=== PATIENT | female | born 1980 | race Caucasian/White ===

== ENCOUNTER 2016-08-23 12:26 | Emergency (ER) | payer MEDICAID, OTHER ==
[~2016-08-23] VITALS: Ht 157.5 cm; Wt 92.5 kg
[~2016-08-23 12:26] MED LIST: /TIZA4TA PO; ACET500T37 PO; ACET650T PO; AMBI10TA PO; AMBI12.52 PO; ARMO120T PO; ARMO90TA PO; AUGM875T27 PO; BACL10TA2 PO; BUTR10DI2 TD; CIPR500T89 PO; CLAR10CA3 PO; CLON1TAB PO; CYCL10TA PO; DEPA1TAB3 PO; FIORCAP3 PO; HYDRPOW48 PO; KEPP500T6 PO; KLON0.5T PO; LEVO125T3 PO; LEVO150T7 PO; LEXA1TAB PO; LEXA1TAB2 PO; LIDODERM TOP; LISI10TA4 PO; LOMO2.5T PO; LORA10TA2 PO; LORA24TA PO; LYRI75CA PO; MIREIUD IU; MORP15IN4 IJ; MORP15TA2 PO; MORP15TA39 PO; MORP15TASA PO; NICO21DI5 TD; PRIL20CA9 PO; PRIN10TA PO; PROP80TA PO; ROBA750T4 PO; SING10TA32 PO; SUMA50TA2 PO; TPS Cream TOP; TYLE325T5 PO; VICODIN PO; ZOLP-187 PO; [UNRECOGNIZED DRUG - CODE] PO; [UNRECOGNIZED DRUG - CODE] PO; buspar PO
[2016-08-23] MEDS ORDERED: DIPH2.5T14 (13:06)
[2016-08-23] MEDS ORDERED: CLIN1LOT (13:06)
[2016-08-23] MEDS ORDERED: BUTA1CAP5 (13:06)
[2016-08-23] MEDS ORDERED: HYDR-4274 (13:06)
[2016-08-23] MEDS ORDERED: CLON1TAB (13:06)
[2016-08-23] MEDS ORDERED: DEPA500T2 PO (13:06)
[2016-08-23] MEDS ORDERED: ZOLP12.515 (13:06)
[2016-08-23] MEDS ORDERED: CLEO300C2 PO (14:51)
[2016-08-23] MEDS ORDERED: NORC1TAB4 PO (15:07)
[2016-08-23] MEDS ORDERED: DIFL150T PO (15:19)
[2016-08-23 15:20] VITALS: BP 115/75
== END 2016-08-23 15:24 | disposition home or self-care (01) ==
LOC: M ED 14:02
DX: S61.411A Laceration without foreign body of right hand, initial encounter (principal); L03.113 Cellulitis of right upper limb; W26.0XXA Contact with knife, initial encounter; Y92.099 Unspecified place in other non-institutional residence as the place of occurrence of the external cause; Y93.89 Activity, other specified; Y99.9 Unspecified external cause status

== ENCOUNTER → 2016-09-22 | Outpatient (CLI) | payer MEDICAID ==
[~2016-09-22] MED LIST changes: +BUTA1CAP5; +CLEO300C2 PO; +CLIN1LOT; +CLON1TAB; +DEPA500T2 PO; +DIFL150T PO; +DIPH2.5T14; +HYDR-4274; +NORC1TAB4 PO; +ZOLP12.515
== END ==
LOC: M OUTALCOH 07:41
PROVIDERS: ATTEND Psychiatry & Neurology Psychiatry
DX: Z13.9 Encounter for screening, unspecified (principal); F13.20 Sedative, hypnotic or anxiolytic dependence, uncomplicated; F11.20 Opioid dependence, uncomplicated

== ENCOUNTER 2016-10-06 10:00 | Outpatient (RCR) | payer MEDICAID | END 2016-10-14 | LOC: M OUTALCOH 10:00 | PROVIDERS: ATTEND Psychiatry & Neurology Psychiatry | DX: F13.20 Sedative, hypnotic or anxiolytic dependence, uncomplicated (principal); F11.20 Opioid dependence, uncomplicated; F19.20 Other psychoactive substance dependence, uncomplicated ==

== ENCOUNTER 2016-10-21 10:12 | Emergency (ER) | payer MEDICAID ==
[~2016-10-21] VITALS: Ht 157.5 cm; Wt 68.5 kg
[2016-10-21] MEDS ORDERED: ZYRTTAB2 PO (10:26)
[2016-10-21] MEDS ORDERED: PROZ10CA7 PO (10:26)
[2016-10-21] MEDS ORDERED: FLUT1SPR2 (10:26)
[2016-10-21] MEDS ORDERED: LEVO125T3 PO (10:26)
[2016-10-21] MEDS ORDERED: DOXY-278 PO (10:26)
[2016-10-21] MEDS ORDERED: PRED20TA PO (12:00)
[2016-10-21] MEDS ORDERED: [UNRECOGNIZED DRUG - CODE] PO (12:00)
[2016-10-21 12:09] VITALS: BP 170/90
== END 2016-10-21 12:21 | disposition home or self-care (01) ==
LOC: M ED 11:07
DX: R60.9 Edema, unspecified (principal); I10 Essential (primary) hypertension; G89.29 Other chronic pain; M54.2 Cervicalgia; F41.9 Anxiety disorder, unspecified; F17.200 Nicotine dependence, unspecified, uncomplicated; Z87.820 Personal history of traumatic brain injury; Z79.899 Other long term (current) drug therapy; Z88.5 Allergy status to narcotic agent; Z88.6 Allergy status to analgesic agent

== ENCOUNTER 2016-11-10 10:00 | Outpatient (RCR) | payer MEDICAID ==
[~2016-11-10 10:00] MED LIST changes: +ACET-683 PO; -ACET500T37 PO; -AUGM875T27 PO; +AUGM875T28 PO; -BUTA1CAP5; +BUTR10DI TD; -BUTR10DI2 TD; +CIPR-249 PO; -CIPR500T89 PO; +DOXY-278 PO; +FIORINAL; +FLUT1SPR2; -HYDR-4274; +HYDR50TA70; +KEPP1TAB PO; -KEPP500T6 PO; +LEVO125T4 PO; -MORP15TA39 PO; +MORP1TAB19 PO; +PRED20TA PO; +PROZ10CA7 PO; +SONA1CAP PO; +ZYRTTAB8 PO; +[UNRECOGNIZED DRUG - CODE] PO; -[UNRECOGNIZED DRUG - CODE] PO
== END 2016-11-13 ==
LOC: M OUTALCOH 10:00
PROVIDERS: ATTEND Psychiatry & Neurology Psychiatry
DX: F13.20 Sedative, hypnotic or anxiolytic dependence, uncomplicated (principal); F11.20 Opioid dependence, uncomplicated; F19.20 Other psychoactive substance dependence, uncomplicated

== ENCOUNTER 2016-11-15 12:47 | Emergency (ER) | payer MEDICAID, OTHER ==
[~2016-11-15] VITALS: Ht 160 cm; Wt 89.2 kg
--- NOTE | 2016-11-15 14:13 | REP ---
Clinical: Trauma. Technique: AP, lateral, bilateral oblique views left foot. Findings: The osseous structures and joint spaces are intact and normal. There is no evidence for acute fracture or dislocation. Surrounding soft tissues are unremarkable. No subcutaneous emphysema or radiodense foreign body. Impression: No acute fracture or dislocation. Signed by Albert Monique MD 11/15/2016 02:03 P
--- NOTE | 2016-11-15 14:13 | REP ---
Clinical: Trauma. Technique: AP, lateral, bilateral oblique views left wrist. Findings: The carpal bones, surrounding osseous structures, soft tissues, and joint spaces are normal. There is no evidence for acute fracture or dislocation. No subcutaneous emphysema. Impression: No acute fracture or dislocation Signed by Albert Monique MD 11/15/2016 02:05 P
[2016-11-15] MEDS ORDERED: LORazepam 2 MG TAB PO STA (15:25)
[2016-11-15 16:36] VITALS: BP 129/85
== END 2016-11-15 16:32 | disposition home or self-care (01) ==
LOC: M ED 14:03
DX: S80.01XA Contusion of right knee, initial encounter (principal); S80.02XA Contusion of left knee, initial encounter; F17.210 Nicotine dependence, cigarettes, uncomplicated; F43.12 Post-traumatic stress disorder, chronic; M54.2 Cervicalgia; G89.29 Other chronic pain; Z87.820 Personal history of traumatic brain injury; Y04.0XXA Assault by unarmed brawl or fight, initial encounter; Y92.248 Other public administrative building as the place of occurrence of the external cause; Y93.89 Activity, other specified; Y99.9 Unspecified external cause status

== ENCOUNTER 2016-12-10 08:00 | Outpatient (RCR) | payer MEDICAID ==
[2016-12-11] MEDS ORDERED: CLON1TAB PO (19:15)
[2016-12-11] MEDS ORDERED: BUTACAP78 PO (19:15)
[2016-12-11] MEDS ORDERED: FLUO10TA30 PO (19:17)
[2016-12-11] MEDS ORDERED: DOXY100T PO (19:17)
[2016-12-11] MEDS ORDERED: DIVA500T3 PO (19:17)
[2016-12-11] MEDS ORDERED: FLUO20CA19 PO (19:17)
[2016-12-11] MEDS ORDERED: LOMO2.5T PO (19:17)
[2016-12-11] MEDS ORDERED: FLON1SPR (19:21)
[2016-12-11] MEDS ORDERED: AMBI10TA PO (19:21)
[2016-12-11] MEDS ORDERED: ALPR0.5T3 PO (19:21)
[2016-12-11] MEDS ORDERED: PROP80TA PO (19:21)
[2016-12-11] MEDS ORDERED: ZYRTTAB8 PO (19:21)
[2016-12-11] MEDS ORDERED: LEVO150T42 PO (19:21)
[2016-12-11] MEDS ORDERED: LISI10TA4 PO (19:21)
[2016-12-11] MEDS ORDERED: SUMA50TA2 PO (19:21)
[2016-12-11] MEDS ORDERED: PATIENT COMMENT (19:22)
[2016-12-11] MEDS ORDERED: AMIT10TA PO (19:22)
== END 2016-12-14 ==
LOC: M OUTALCOH 08:00
PROVIDERS: ATTEND Psychiatry & Neurology Psychiatry
DX: F13.20 Sedative, hypnotic or anxiolytic dependence, uncomplicated (principal); F11.20 Opioid dependence, uncomplicated; F19.20 Other psychoactive substance dependence, uncomplicated

== ENCOUNTER 2016-12-11 15:10 | Observation (INO) | payer MEDICAID, OTHER ==
[~2016-12-11] VITALS: Ht 160 cm; Wt 93.8 kg
[2016-12-11] MEDS ORDERED: CHARCOAL ACTIVATED LIQUID 25 GM/120 ML BTL PO ONE (15:45)
[2016-12-11] MEDS ORDERED: NALOXONE INJ 2 MG/2 ML SYRINGE (J2310) IV ONE (15:45)
[2016-12-11 15:57] LABS: BASO % 0.8 % (0.0-1.0); EOS # 0.2 K/mm3 (0.0-0.50); EOS % 3.5 % (0.0-3.0); LARGE UNSTAINED CELL # 0.1 K/mm3 (0.0-0.4); LARGE UNSTAINED CELL % 1.6 % (0.0-4.0); LYMPH # 2.9 K/mm3 (1.5-4.5); LYMPH % 41.1 % (24.0-44.0); MEAN CORPUSCULAR HEMOGLOBIN 32.6 pg (27.0-33.0); MEAN CORPUSCULAR HGB CONC 34.2 g/dl (32.0-36.5); MEAN CORPUSCULAR VOLUME 95.3 fl (80.0-96.0); MONO # 0.4 K/mm3 (0.0-0.8); MONO % 5.8 % (0.0-5.0); NEUTROPHILS # 3.2 K/mm3 (1.8-7.7); NEUTROPHILS % 47.3 % (36.0-66.0); PLATELET COUNT, AUTOMATED 213 k/mm3 (150-450); WHITE BLOOD COUNT 6.7 K/mm3 (4.0-10.0)
[2016-12-11] MEDS: NS 1,000 ML IV SCH ×2 (15:57→21:19)
[2016-12-11 16:12] LABS: CONTROL LINE HCG INT CTR LINE PRESENT
[2016-12-11 16:29] LABS: ALBUMIN 3.7 GM/DL (3.2-5.2); ALBUMIN/GLOBULIN RATIO 1.28 (1.00-1.93); ALKALINE PHOSPHATASE 63 U/L (45-117); ALT/SGPT 17 U/L (12-78); ANION GAP 9 MEQ/L (8-16); AST/SGOT 21 U/L (15-37); BILIRUBIN,DIRECT 0.1 MG/DL (0.0-0.2); BILIRUBIN,TOTAL 0.5 MG/DL (0.2-1.0); BLOOD UREA NITROGEN 8 MG/DL (7-18); CALCIUM LEVEL 8.2 MG/DL (8.5-10.1); CARBON DIOXIDE LEVEL 25 MEQ/L (21-32); CHLORIDE LEVEL 106 MEQ/L (98-107); CREATININE FOR GFR 0.94 MG/DL (0.55-1.02); GLOMERULAR FILTRATION RATE > 60.0 (>60); GLUCOSE, FASTING 87 MG/DL (70-105); POTASSIUM SERUM 4.1 MEQ/L (3.5-5.1); SODIUM LEVEL 140 MEQ/L (136-145); TOTAL PROTEIN 6.6 GM/DL (6.4-8.2)
--- NOTE | 2016-12-11 17:04 | REP ---
Maxillofacial CT: The patient is uncooperative was of remain quiescent during the scanning process and actually sat up in the scanning gantry during the procedure. Repeat images are attempted. There is no nasal bone fracture. No orbit fracture is identified. No zygoma fracture. The paranasal sinuses and mastoid air cells are unremarkable. There is congenital mild nasal the zone septal deviation to the right anteriorly . The skull base and sella are unremarkable. No fracture of the maxilla identified. Impression: No facial bone fractures are identified. Signed by Steve Contreras MD 12/11/2016 04:55 P
--- NOTE | 2016-12-11 17:10 | REP ---
CHEST, PORTABLE, SINGLE VIEW: There is no evidence of acute infiltrate. No pleural effusion is seen. The heart is normal in size. The mediastinal silhouette is unremarkable. The visualized osseous structures are intact. IMPRESSION: No acute pulmonary disease. Signed by Steve Jamison MD 12/22/2016 08:37 A
[2016-12-11 17:12] LABS: METHADONE URINE NEGATIVE (NEGATIVE)
--- NOTE | 2016-12-11 17:35 | REP ---
CT CERVICAL SPINE: CT cervical spine was performed in the axial plane, with sagittal and coronal reconstruction images. There is no compression fracture. There is no malalignment. There is no prevertebral soft tissue swelling. There is mild posterior spurring at C5 and C6 with mild disc space narrowing at that level. No definite hematoma is seen in the spinal canal. IMPRESSION: No evidence of acute fracture or dislocation. Signed by Steve Jamison MD 12/22/2016 08:37 A
--- NOTE | 2016-12-11 17:36 | REP ---
CT BRAIN WITHOUT CONTRAST: 12/11/2016: Comparison: 02/24/2016. Clinical history: Drug overdose. Head trauma. Coup-contrecoup injury. Findings: Soft-tissue and bone window settings are reviewed for each slice level. Ventricles are midline, symmetric and without dilatation or displacement. Basal ganglia are symmetric and normal. The curtis-white junction differentiation is well maintained. The cortical stripe preserved. I see no vascular territory infarct, hemorrhage, mass, mass effect or edema. No extra-axial fluid collections are noted. The brainstem was intact. Cerebellum is normal. The basal cisterns are intact. Visualized mastoids and sinuses are clear. The calvarium and skull base are without fracture or focal lesion. There is a central frontal scalp hematoma with small amount of swelling but no subjacent fracture and no coup-contrecoup injury. Impression: 1. A small frontal scalp hematoma without subjacent fracture is noted. Visualized calvarium, skull base, mastoids and sinuses are clear. 2. No intracranial hemorrhage or other acute abnormality within the brain. No extra-axial fluid collection. Abdomen at time of signature: I wish it to be known that this study was just presented for my signature. Signed by Alessandro Michele MD 01/13/2017 05:00 P
[2016-12-11] MEDS ORDERED: NS 1,000 ML IV SCH (18:51)
[2016-12-11] MEDS ORDERED: ONDANSETRON 4MG/2ML VIAL (J2405) IV PRN (19:00)
[2016-12-11] MEDS ORDERED: CLON1TAB PO (19:15)
[2016-12-11] MEDS ORDERED: BUTACAP78 PO (19:15)
[2016-12-11] MEDS ORDERED: LOMO2.5T PO (19:17)
[2016-12-11] MEDS ORDERED: FLUO20CA19 PO (19:17)
[2016-12-11] MEDS ORDERED: DIVA500T3 PO (19:17)
[2016-12-11] MEDS ORDERED: FLUO10TA30 PO (19:17)
[2016-12-11] MEDS ORDERED: DOXY100T PO (19:17)
[2016-12-11] MEDS ORDERED: PROP80TA PO (19:21)
[2016-12-11] MEDS ORDERED: LEVO150T42 PO (19:21)
[2016-12-11] MEDS ORDERED: FLON1SPR (19:21)
[2016-12-11] MEDS ORDERED: AMBI10TA PO (19:21)
[2016-12-11] MEDS ORDERED: SUMA50TA2 PO (19:21)
[2016-12-11] MEDS ORDERED: ZYRTTAB8 PO (19:21)
[2016-12-11] MEDS ORDERED: ALPR0.5T3 PO (19:21)
[2016-12-11] MEDS ORDERED: LISI10TA4 PO (19:21)
[2016-12-11] MEDS ORDERED: PATIENT COMMENT (19:22)
[2016-12-11] MEDS ORDERED: AMIT10TA PO (19:22)
--- NOTE | 2016-12-11 19:38 | HPEPDOC ---
Medical History and Physical Date of Admission Dec 11, 2016 at 19:06 History and Physical PRIMARY CARE PROVIDER: PCP unknown at this time ATTENDING: Ronnie Peterson MD CHIEF COMPLAINT: Status post fall, altered mental status HISTORY OF PRESENT ILLNESS: This is a 36-year-old female past medical history of seizure disorder, TBI 2011 , anxiety, hypothyroidism status post thyroidectomy for Graves' disease, hypertension, chronic neck and back pain who presents after her daughter had called 911 upon seeing her staring at the phone. Per ED physician, the patient had been getting Fioricet, clonazepam, amitriptyline, and likely had some undocumented medications, that she likely overdosed on. The patient has a history of drug overdose, and states that she currently goes to group meetings on Tuesdays she is an addict. ED physician stated that 2 physicians in [facility] are prescribing her these medications. The patient states that she was walking to the bathroom and she fell onto but the bathtub striking her for head, and broke 3 front teeth. She is slow to respond to questions and history is very limited from her. States she has a 10-year-old daughter at home alone; nursing mold yard supervisor has been notified. PAST MEDICAL HISTORY: As per HPI PAST SURGICAL HISTORY: Recent thyroidectomy 2015 SOCIAL HISTORY: States she smokes 1 pack per day times years. Denies alcohol or illicit drug use. FAMILY HISTORY: Noncontributory ALLERGIES: Please see below. REVIEW OF SYSTEMS: HEENT: Denies sore throat/headache CARDIOVASCULAR: Denies chest pain/palpitations RESPIRATORY: Denies shortness of breath/cough GASTROINTESTINAL: denies nausea/vomiting GENITOURINARY: Denies dysuria/urinary urgency. MUSCULOSKELETAL: Denies myalgias/arthralgias NEUROLOGICAL: Denies any focal weakness HOME MEDICATIONS: Please see below. PHYSICAL EXAMINATION: Vitals: (see below) General: No acute distress, laying comfortably in bed. HEENT: Moist mucous membranes. Proptosis b/l. Face with frontal contusion. Nose with abrasion. 3 front teeth missing Neck: No JVD or lymphadenopathy Cardiac: RRR, No murmurs Pulm: Clear to auscultation b/l. No wheezing, rhonchi Abd: NT/ND + BS Ext: No edema or cyanosis Neuro: Strength 5/5 BUE and BLE. CN 2-12 intact. B/l Nystagmus noted. Pupils 4mm equal and reactive to light. F to N intact Negative [place]. Alert and oriented to person, place, year. Slow to respond to questions. LABORATORY DATA: See below. IMAGING: Maxillofacial CT 12/11/16 Impression:No facial bone fractures are identified. CT Head Impression: 12/11/16 1. A small frontal scalp hematoma without subjacent fracture is noted. Visualized calvarium, skull base, mastoids and sinuses are clear. 2. No intracranial hemorrhage or other acute abnormality within the brain. No extra-axial fluid collection. CXR 12/11/16 IMPRESSION: No acute pulmonary disease. CT C- spine 12/11/16 IMPRESSION: No evidence of acute fracture or dislocation. MICROBIOLOGY: Please see below. ASSESSMENT/PLAN: 1. Drug overdose- patient has a history of multiple overdoses. States she is an addict who attends group meetings on Tuesdays. We'll hold her home medications at this point. Monitor telemetry. She does have nystagmus on exam. Slow to respond to questions; otherwise no significant focal deficits on exam. Patient is not medically stable at this point. We'll need to monitor on telemetry. EKG with normal sinus rhythm no acute ST changes normal QTC. Poison control was notified by the ED staff with recommendations for checking ammonia level, and monitoring patient. Once medically stable, will need psychiatry consulted. 2. Frontal hematoma/3 broken teeth/ nasal abrasion/laceration- no broken bones per CAT scans. We'll continue to monitor. 3. Hypothyroidism- status post thyroidectomy for Graves' disease. Patient states she recently picked up her thyroid medications 2 days ago and has not started them yet. We will start Synthroid. 4. ? History of Seizure disorder- Depakote level low. ? Whether patient was taking it. All need to reassess mental status in the a.m. before restarting. 5. History of hypertension- on lisinopril 6. History of anxiety 7. History of chronic neck and back pain DVT prophylaxis- SCDs Patient will be followed by Dr. Boo starting 12/12/16 at 7 AM. Vital Signs Vital Signs Date Time Temp Pulse Resp B/P (MAP) Pulse Ox O2 Delivery O2 Flow Rate FiO2 12/11/16 18:04 144/93 (110) 12/11/16 18:01 97.3 71 18 100 12/11/16 15:29 Room Air Laboratory Data Labs 24H Laboratory Tests 2 12/11/16 15:45: White Blood Count 6.7, Red Blood Count 4.19, Hemoglobin 13.7, Hematocrit 39.9, Mean Corpuscular Volume 95.3, Mean Corpuscular Hemoglobin 32.6, Mean Corpuscular Hemoglobin Concent 34.2, Red Cell Distribution Width 14.0, Platelet Count 213, Neutrophils (%) (Auto) 47.3, Lymphocytes (%) (Auto) 41.1, Monocytes ( %) (Auto) 5.8H, Eosinophils (%) (Auto) 3.5H, Basophils (%) (Auto) 0.8, Neutrophils # (Auto) 3.2, Lymphocytes # (Auto) 2.9, Monocytes # (Auto) 0.4, Eosinophils # (Auto) 0.2, Basophils # (Auto) 0.0, Large Unclassified Cells % 1.6 , Large Unclassified Cells # 0.1, Anion Gap 9, Glomerular Filtration Rate > 60.0 , Calcium Level 8.2L, Aspartate Amino Transf (AST/SGOT) 21, Alanine Aminotransferase (ALT/SGPT) 17, Alkaline Phosphatase 63, Total Bilirubin 0.5, Direct Bilirubin 0.1, Total Creatine Kinase 366H, Total Protein 6.6, Albumin 3.7 , Albumin/Globulin Ratio 1.28, Thyroid Stimulating Hormone (TSH) 32.200H, Human Chorionic Gonadotropin, Qual NEGATIVE, Salicylates Level 3.7L, Acetaminophen Level < 2.0L, Valproic Acid (Depakene) Level 44.8L, Ethyl Alcohol Level < 0.003 12/11/16 15:49: Urine Amphetamines Screen NEGATIVE, Urine Benzodiazepines Screen NEGATIVE, Urine Opiates Screen NEGATIVE, Urine Methadone Screen NEGATIVE, Urine Barbiturates Screen POSITIVEH, Urine Phencyclidine Screen NEGATIVE, Urine Cocaine Metabolite Screen NEGATIVE, Urine Cannabinoids Screen NEGATIVE 12/11/16 17:23: Ammonia 36H CBC/BMP Laboratory Tests 12/11/16 15:45 Red Blood Count 4.19, Mean Corpuscular Volume 95.3, Mean Corpuscular Hemoglobin 32.6, Mean Corpuscular Hemoglobin Concent 34.2, Red Cell Distribution Width 14.0 , Neutrophils (%) (Auto) 47.3, Lymphocytes (%) (Auto) 41.1, Monocytes (%) (Auto ) 5.8 H, Eosinophils (%) (Auto) 3.5 H, Basophils (%) (Auto) 0.8, Neutrophils # ( Auto) 3.2, Lymphocytes # (Auto) 2.9, Monocytes # (Auto) 0.4, Eosinophils # (Auto ) 0.2, Basophils # (Auto) 0.0 Home Medications Scheduled (Fluoxetine HCl) 10 Mg Tab, 10 MG PO DAILY Divalproex Sodium (Divalproex Sodium Dr) 500 Mg Tab, 500 MG PO BID Doxycycline Hyclate (Doxycycline Hyclate) 100 Mg Tab, 100 MG PO DAILY Fluoxetine Hcl (Fluoxetine HCl) 20 Mg Cap, 20 MG PO DAILY Scheduled PRN (Butalbital/Acetaminophen/ 50-325-40 mg) 1 Cap Cap, 1 CAP PO Q4H PRN for MIGRAINE Clonazepam (Clonazepam) 1 Mg Tab, 1 MG PO TID PRN for ANXIETY UNSURE IF PATIENT IS ON BOTH XANAX AND KLONOPIN... XANAX FILLED 11/18/16 FOR 30 DAYS AND KLONOPIN FILLED 12/03/16 FOR 30 DAYS. Diphenoxylate/Atropine (Lomotil 2.5-0.025 mg) 1 Tab Tab, 1 TAB PO QID PRN for DIARRHEA Allergies Coded Allergies: Aspirin (Verified Allergy, Severe, ANAPHYLAXIS, 07/28/13) NSAIDs (Verified Allergy, Severe, ANAPHYLAXIS, 07/28/13) Codeine (Verified Adverse Reaction, Intermediate, SEVERE NAUSEA, 06/04/14) RONNIE PETERSON MD Dec 11, 2016 19:38
[2016-12-11 21:00] VITALS: O2SAT 98
[2016-12-11] MEDS ORDERED: LORazepam 2 MG/ML VIAL (J2060) As Ordered ONE (21:05)
[2016-12-11] MEDS ORDERED: LORazepam 2 MG/ML VIAL (J2060) IV PRN (21:15)
[2016-12-11 21:40] VITALS: BP 129/83
[2016-12-11 22:00] VITALS: O2SAT 98
[2016-12-11 23:00] VITALS: O2SAT 98
[2016-12-12] VITALS (9 sets, daily range): BP systolic 114–133; BP diastolic 66–96; O2SAT 95–100
[2016-12-12] MEDS: NS 1,000 ML IV SCH (03:30)
[2016-12-12 05:21] LABS: MEAN CORPUSCULAR HEMOGLOBIN 32.9 pg (27.0-33.0); MEAN CORPUSCULAR HGB CONC 34.1 g/dl (32.0-36.5); MEAN CORPUSCULAR VOLUME 96.4 fl (80.0-96.0); RED CELL DISTRIBUTION WIDTH 14.1 % (11.5-14.5); WHITE BLOOD COUNT 5.9 K/mm3 (4.0-10.0)
[2016-12-12 05:34] LABS: ANION GAP 8 MEQ/L (8-16); BLOOD UREA NITROGEN 7 MG/DL (7-18); CALCIUM LEVEL 7.2 MG/DL (8.5-10.1); CARBON DIOXIDE LEVEL 25 MEQ/L (21-32); CHLORIDE LEVEL 109 MEQ/L (98-107); CREATININE FOR GFR 1.03 MG/DL (0.55-1.02); GLOMERULAR FILTRATION RATE > 60.0 (>60); GLUCOSE, FASTING 84 MG/DL (70-105); MAGNESIUM LEVEL 2.2 MG/DL (1.8-2.4); POTASSIUM SERUM 3.4 MEQ/L (3.5-5.1); SODIUM LEVEL 142 MEQ/L (136-145)
[2016-12-12] MEDS: KCL 10MEQ IN 100ML SWI (KRUN) 10 MEQ in APPROPRIATE DILUENT 1 EA IV SCH ×4 (06:26→07:58)
--- NOTE | 2016-12-12 09:51 | MHIPNPDOC ---
[facility] Progress Note Progress Note DATE OF SERVICE: 12/12/16 HISTORY: 36 year old female with history of facial contusion and overdose with unknown amount of medications, including canine medications. VITAL SIGNS: See below. NEW TEST RESULTS: N/A CURRENT MEDICATIONS: See below. MENTAL STATUS EXAMINATION: Patient is a 36 year old female, who is alert, wearing hospital clothes, with facial bruises. Speech: Is Slurred, tangential. Language skills are Poor. she has thought blocking. Thought processes including: Disorganized, confused. She has waxing and waning. Thought content: Perseveres about going home with her daughter and her son, she doesn't want to loose her daughter. Abstract reasoning, and computation: Patient is not able to do it. She's very confused and looses track of her thinking. Description of associations: Loose Description of abnormal or psychotic thoughts: she's not responding to internal stimuli, she denies suicidal or homicidal ideation, denies thought delusions. Judgment: Poor. Insight: Poor. Orientation: oriented to place and self but not to date or time. Recent and remote memory: Limited. Attention span and concentration: Poor. Language: Fair. Fund of knowledge: Unable to assess at this time. Mood: Depressed. Affect: labile. She is easily agitated and cries easily. Irritable DIAGNOSES: 1. Unspecified depressive disorder 2. Status post overdose 3. Polysubstance use disorder 4. Delirium ASSESSMENT:patient is delirious. she has the waxing and waning characteristic of delirium, she is still encephalopathic. she's depressed, but it could be secondary to the drugs she took to overdose. She is not clear, due to her mental status, as of how long has she been using those medications but she says that she was prescribed opioids, lyrica, ambien and other "stuff", here, at [facility] , when she "broke" her neck. patient's judgment and mental status of confusion put her at risk for suicide or self harm. She has no capacity to make decisions at this time because she is still encephalopathic. MANAGEMENT PLAN: Start her on Haldol 2 mgs PO Q4 hours and Benadryl 50 mgs. PO PRN for EPS. Haldol shouldn't be given if she has cardiac problems because it prolongs QTC. If she has to receive pain medications, please, don't give Tramadol. social Work needs to get involved and get a VIC to speak with family and inquire about pt's history and psychosocial stressors because she seems to be manipulating the information and she is still confused. TIME SPENT: 45 minutes. Vital Signs Vital Signs Date Time Temp Pulse Resp B/P (MAP) Pulse Ox O2 Delivery O2 Flow Rate FiO2 12/12/16 08:00 97.0 65 18 132/96 (108) 96 Room Air Laboratory Data 24H Labs Laboratory Tests 2 12/11/16 15:45: White Blood Count 6.7, Red Blood Count 4.19, Hemoglobin 13.7, Hematocrit 39.9, Mean Corpuscular Volume 95.3, Mean Corpuscular Hemoglobin 32.6, Mean Corpuscular Hemoglobin Concent 34.2, Red Cell Distribution Width 14.0, Platelet Count 213, Neutrophils (%) (Auto) 47.3, Lymphocytes (%) (Auto) 41.1, Monocytes ( %) (Auto) 5.8H, Eosinophils (%) (Auto) 3.5H, Basophils (%) (Auto) 0.8, Neutrophils # (Auto) 3.2, Lymphocytes # (Auto) 2.9, Monocytes # (Auto) 0.4, Eosinophils # (Auto) 0.2, Basophils # (Auto) 0.0, Large Unclassified Cells % 1.6 , Large Unclassified Cells # 0.1, Anion Gap 9, Glomerular Filtration Rate > 60.0 , Calcium Level 8.2L, Aspartate Amino Transf (AST/SGOT) 21, Alanine Aminotransferase (ALT/SGPT) 17, Alkaline Phosphatase 63, Total Bilirubin 0.5, Direct Bilirubin 0.1, Total Creatine Kinase 366H, Total Protein 6.6, Albumin 3.7 , Albumin/Globulin Ratio 1.28, Thyroid Stimulating Hormone (TSH) 32.200H, Human Chorionic Gonadotropin, Qual NEGATIVE, Salicylates Level 3.7L, Acetaminophen Level < 2.0L, Valproic Acid (Depakene) Level 44.8L, Ethyl Alcohol Level < 0.003 12/11/16 15:49: Urine Appearance CLEAR, Urine Color YELLOW, Urine pH 7.0, Urine Specific [place] 1.008, Urine Protein NEGATIVE, Urine Glucose (UA) NEGATIVE, Urine Ketones NEGATIVE, Urine Urobilinogen 0.2, Urine Bilirubin NEGATIVE, Urine Leukocyte Esterase NEGATIVE, Urine Blood 1+H, Urine Nitrite NEGATIVE, Urine WBC (Auto) 0, Urine RBC (Auto) 1, Urine Hyaline Casts (Auto) 0, Urine Bacteria (Auto ) NEGATIVE, Urine Squamous Epithelial Cells 1, Urine Sperm (Auto) , Urine Amphetamines Screen NEGATIVE, Urine Benzodiazepines Screen NEGATIVE, Urine Opiates Screen NEGATIVE, Urine Methadone Screen NEGATIVE, Urine Barbiturates Screen POSITIVEH, Urine Phencyclidine Screen NEGATIVE, Urine Cocaine Metabolite Screen NEGATIVE, Urine Cannabinoids Screen NEGATIVE 12/11/16 17:23: Ammonia 36H 12/11/16 22:00: Valproic Acid (Depakene) Level 26.5L 12/12/16 05:11: Anion Gap 8, Glomerular Filtration Rate > 60.0, Blood Urea Nitrogen 7, Creatinine 1.03H, Sodium Level 142, Potassium Level 3.4L, Chloride Level 109H, Carbon Dioxide Level 25, Calcium Level 7.2L, Magnesium Level 2.2 CBC/BMP Laboratory Tests 12/11/16 15:45 Red Blood Count 4.19, Mean Corpuscular Volume 95.3, Mean Corpuscular Hemoglobin 32.6, Mean Corpuscular Hemoglobin Concent 34.2, Red Cell Distribution Width 14.0 , Neutrophils (%) (Auto) 47.3, Lymphocytes (%) (Auto) 41.1, Monocytes (%) (Auto ) 5.8 H, Eosinophils (%) (Auto) 3.5 H, Basophils (%) (Auto) 0.8, Neutrophils # ( Auto) 3.2, Lymphocytes # (Auto) 2.9, Monocytes # (Auto) 0.4, Eosinophils # (Auto ) 0.2, Basophils # (Auto) 0.0 12/12/16 05:11 Red Blood Count 3.83 L, Mean Corpuscular Volume 96.4 H, Mean Corpuscular Hemoglobin 32.9, Mean Corpuscular Hemoglobin Concent 34.1, Red Cell Distribution Width 14.1, Calcium Level 7.2 L Current Medications Current Medications Home Med (Med Rec Complete!) ASDIRECTED XX ; Start 12/11/16 at 19:30; Stop at 19:30; Status DC Lorazepam (Ativan) 2 mg Q4HP PRN IV AGITATION Last administered on 12/11/16t 21 :18; Start 12/11/16 at 21:15; Stop 12/18/16 at 21:14 Ondansetron HCl (ZOFRAN INJection) 4 mg Q6HP PRN IV NAUSEA OR VOMITING; Start 12/11/16 at 19:00; Stop 01/10/17 at 18:59 Potassium Chloride 10 meq/ IV Miscellaneous Supplies 100 ml @ 100 mls/hr 0600, 0700 IV Last administered on 12/12/16 07:58; Start 12/12/16 at 06:00; Stop at 12:00 Sodium Chloride 1,000 ml @ 80 mls/hr [id number] IV ; Start 12/11/16 at 18:51; Stop 12/11/16 at 19:17; Status DC Sodium Chloride 1,000 ml @ 100 mls/hr Q10H IV Last administered on 12/12/16 03:30; Start 12/11/16 at 15:45; Stop 01/10/17 at 15:44 Allergies Coded Allergies: Aspirin (Verified Allergy, Severe, ANAPHYLAXIS, 07/28/13) NSAIDs (Verified Allergy, Severe, ANAPHYLAXIS, 07/28/13) Codeine (Verified Adverse Reaction, Intermediate, SEVERE NAUSEA, 06/04/14) CALLY MARTINEZ MD Dec 12, 2016 09:51
[2016-12-12] MEDS ORDERED: ACETAMINOPHEN TAB 650MG DOSE (2X325MG) PO PRN ×2 (10:15→10:30)
[2016-12-12] MEDS ORDERED: LORazepam 2 MG TAB PO ONE (12:00)
[2016-12-12] MEDS ORDERED: HALOPERIDOL 5 MG TAB PO ONE (12:00)
--- NOTE | 2016-12-12 21:20 | ECGEPIP ---
Stationary ECG Study [facility] Test Date: 2016-12-12 Pat Name: LINH FREY Department: Room: [place] [address] Gender: F Government Operations Consultant: : 1980 Requested By: YVON COLLADO Order Number: [id number] Reading MD: James Delong Measurements Intervals [place] Rate: 69 P: 33 MS: 160 QRS: 39 QRSD: 98 T: 49 QT: 396 QTc: 425 Interpretive Statements SINUS RHYTHM No significant change when compared to prior tracing of 12/11/16 Electronically Signed On 12-12-2016 21:19:45 EDT by James Delong
--- NOTE | 2016-12-13 02:22 | ECGEPIP ---
Stationary ECG Study [facility] - ED Test Date: 2016-12-11 Pat Name: LINH FREY Department: Room: - Gender: F [employer] Back Feeder: omid : [id number] Requested By: Clint Kam Order Number: [id number] Reading MD: Clint Ledbetter Measurements Intervals [place] Rate: 68 P: 12 VT: 150 QRS: 36 QRSD: 94 T: 39 QT: 393 QTc: 418 Interpretive Statements SINUS RHYTHM Electronically Signed On 12-13-2016 2:21:37 EDT by Clint Ledbetter
--- NOTE | 2016-12-13 22:00 | DSES ---
DATE OF ADMISSION: 12/11/2016 DATE OF DISCHARGE: 12/12/2016 CONSULTATIONS: Dr. Alexander, psychiatry. DISCHARGE DIAGNOSIS: Drug overdose. SECONDARY DIAGNOSES: 1. Anxiety, depression. 2. Hypertension. 3. Seizure disorder. 4. Chronic neck and back pain. HOSPITAL COURSE: The patient is a 36-year-old female with a history of traumatic brain injury (TBI) and Grave's disease status post thyroidectomy, who presented after her daughter called . Documented by the patient's previous providers, at the time of the patient's presentation, reported that the patient had overdosed. It was unclear which medication she was taking Fioricet, clonazepam, amitriptyline at home, as well as Depakote. Poison control was notified. She was admitted to the progressive care unit, monitored on telemetry without any QT prolongation. Her labs were fairly unremarkable. She did have some facial trauma following a fall, suspected to have occurred during her episode of overdose. She did not require any sutures. She did lose three teeth. As per the emergency room (ER) admission note, the patient was very slow to respond. When I came to evaluate the patient on the morning of 12/12, she was initially sleepy but was able to answer questions and follow commands appropriately. She was seen by Psychiatry who felt that she was a danger to herself and not safe for discharge home. The patient shortly thereafter woke up and began to state that she wanted to leave the hospital against medical advice, and that she was currently with a case with adult protective services and on trial, taking care of her young daughter and she was scared she was going to lose her daughter. I did inform that given the psychiatrist's recommendations, she could not leave the hospital against medical advice and that if she did, a code 25 would be called and police authorities may even be involved, and she did explain to me at that point that she was on probation. She did not want this to occur either. I did offer her the phone number for office of mental health hygiene to obtain a second, third constitution party review of her case. I did get this number from the nursing supervisor pre wave. The patient was unhappy with the decision for her to be admitted to the Inpatient mental health, and most likely the paperwork for involuntary admission was filled out by both myself and Dr. Alexander. Greater than 40 minutes were spent bedside answering all the patient's questions, explaining things were as best as possible. SUBJECTIVE: The patient reports that she feels well and she wants to go home. OBJECTIVE: VITAL SIGNS: Temperature 97, pulse 65, respiratory rate 18, blood pressure 132/96, oxygen saturation 96% on room air. GENERAL: She is a middle-aged female obese, sitting up in bed. She is tearful and emotionally labile during the exam. She has evidence of facial trauma with ecchymosis and three missing front teeth, but no lacerations. HEENT: Moist mucous membranes. No elevation of central venous pressure (central venous pressure). CARDIOVASCULAR: S1, S2. RESPIRATORY: Clear. ABDOMEN: Obese. EXTREMITIES: No clubbing, cyanosis or edema. Numerous tattoos. LABORATORY DATA: WBC 5.9, hemoglobin 12.6, hematocrit 36.9, platelet count 193. Chemistry panel: Sodium 142, potassium 3.4, chloride 109, bicarbonate 29, BUN 7, creatinine 1.0. Her TSH was noted to be elevated at 32.2. She tested positive for barbiturates on her urinalysis (UA). She did have cervical spine CT, chest x-ray, head CT, and maxillofacial CT without acute fractures. ASSESSMENT AND PLAN: This is a 36-year-old female with presentation highly suspicious for substance overdose. 1. Substance overdose. The patient at the present time denies suicide ideation and denies substance overdose; however, she was unable to provide this history. At the time of her presentation, gives a very different story than what is documented from previous providers and responders. Given the amount of stressors in her life and her clearly depressed mood, I agree with Dr. Alexander that I feel that this patient is a danger to herself and would likely benefit greatly from going back to inpatient mental health where she has been seen previously. I, with the help of Dr. Alexander, filled out paperwork for an involuntary admission. She has been given the Office of Mental Hygiene's phone number provided to me from the nursing supervisor pre wave in order to obtain an independent review. I have also informed the patient in detail about her ability to fill out a 72-hour to write us a note requesting to be seen and discharged in 72 hours. As I understand it, this is a potential option for her. At this time, she is being discharged to the inpatient mental health unit. 2. Hypothyroidism. The patient I feel has likely been noncompliant. For now we will simply restart her home thyroid medication. DISPOSITION: She is to followup with psychiatry immediately. Followup with primary care provider (PCP) within seven days. Activity is as prior to admission. Diet as prior to admission. To consider an outpatient endocrinology referral with her PCP as indicated if she becomes hypertensive. I will defer to psychiatry regarding management of her psychiatric medications. MEDICATION LIST AT THE TIME OF DISCHARGE: - alprazolam 0.5 mg daily as needed for anxiety - amitriptyline 30 mg at bedtime for sleep - Fioricet by mouth every four hours as needed for migraines - clonazepam 1 mg three times a day as needed for anxiety - Lomotil one tablet four times a day as needed for diarrhea - Flonase two sprays as needed for congestion - fluoxetine 10 mg daily, 30 mg total - levothyroxine 150 mcg daily - propranolol 80 mg three times a day - sumatriptan 50 mg as needed for migraines - Ambien 10 mg as needed for sleep - Zyrtec D one tablet daily as needed for allergies Greater than 30 minutes were spent organizing disposition, and answering all questions to the patient's satisfaction. MTDD
== END 2016-12-12 13:17 ==
LOC: M ED 15:10 → EDUNIT# 15:10 → EDBD 15:10 → M ED INP 19:06 → M PCU 20:25
PROVIDERS: ADMIT Internal Medicine; ATTEND Internal Medicine
DX: T50.904A Poisoning by unspecified drugs, medicaments and biological substances, undetermined, initial encounter (principal); S00.93XA Contusion of unspecified part of head, initial encounter; W18.49XA Other slipping, tripping and stumbling without falling, initial encounter; Y92.89 Other specified places as the place of occurrence of the external cause; Y99.9 Unspecified external cause status; I10 Essential (primary) hypertension; E03.9 Hypothyroidism, unspecified; R56.9 Unspecified convulsions; M54.5 Low back pain; M54.2 Cervicalgia; Z87.820 Personal history of traumatic brain injury; F32.9 Major depressive disorder, single episode, unspecified; F41.9 Anxiety disorder, unspecified; Z79.899 Other long term (current) drug therapy; Z88.8 Allergy status to other drugs, medicaments and biological substances; F17.210 Nicotine dependence, cigarettes, uncomplicated; Y93.9 Activity, unspecified
CPT/HCPCS: 36415; 51701; 70450; 70486; 71010; 72125; 80048; 80076; 80164; 80307; 80320; 80329; 81001; 82140; 82550; 83735; 84443; 84703; 85025; 85027; 93000; 93041; 94760; 96361; 96374; 96375; 99285; J2060; J2310

== ENCOUNTER 2016-12-12 13:20 | Inpatient (IN) | payer OTHER ==
[~2016-12-12] VITALS: Ht 160 cm; Wt 87.1 kg
[~2016-12-12 13:20] MED LIST changes: +ALPR0.5T3 PO; +AMIT10TA PO; +BUTACAP78 PO; +DIVA500T3 PO; +DOXY100T PO; +FLON1SPR; +FLUO10TA30 PO; +FLUO20CA19 PO; +LEVO150T42 PO; +PATIENT COMMENT
[2016-12-12] MEDS ORDERED: traZODone 50 MG TAB PO PRN (15:45)
[2016-12-12] MEDS ORDERED: HALOPERIDOL 5 MG TAB PO PRN (15:45)
[2016-12-12] MEDS ORDERED: MOM 30ML SUSPENSION UDC PO PRN (15:45)
[2016-12-12] MEDS ORDERED: MAALOX 30 ML SUSP *UDC PO PRN (15:45)
[2016-12-12] MEDS ORDERED: hydrOXYzine 50 MG TAB PO PRN (15:45)
[2016-12-12] MEDS ORDERED: LORazepam 1 MG TAB PO SCH (16:00)
[2016-12-12] MEDS: NICOTINE 21MG/24HR 1 EA TRANSDERMAL TD SCH (16:46)
[2016-12-12] MEDS: LORazepam 1 MG TAB PO PRN (16:47)
[2016-12-12] MEDS: FIORICET TAB PO PRN (16:49)
[2016-12-12 18:22] VITALS: BP 140/94
[2016-12-12] MEDS: DIVALPROEX 500MG *ER* TAB PO SCH (20:47)
[2016-12-12] MEDS: diphenhydrAMINE 50 MG CAP PO PRN (20:47)
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
[2016-12-13] MEDS: LEVOTHYROXINE 150MCG TABLET (0.15MG) PO SCH (06:04)
[2016-12-13] MEDS: DIVALPROEX 500MG *ER* TAB PO SCH ×2 (09:29→21:42)
[2016-12-13] MEDS: LISINOPRIL 10 MG TAB PO SCH (09:30)
[2016-12-13] MEDS: NICOTINE 21MG/24HR 1 EA TRANSDERMAL TD SCH (09:30)
[2016-12-13] MEDS: LORazepam 1 MG TAB PO PRN ×3 (09:42→23:05)
[2016-12-13] MEDS: FIORICET TAB PO PRN ×2 (09:42→19:06)
[2016-12-13 18:35] VITALS: BP 140/89
[2016-12-13 21:00] VITALS: BP 136/88
--- NOTE | 2016-12-13 23:16 | HPE ---
DATE OF ADMISSION: 12/12/2016 Please refer to psychiatric history and evaluation for further details on this admission. This examination and history is intended for medical issues, which may need to involve a consult on this 36-year-old female, who was transferred from the intensive care unit (ICU) after having been treated and stabilized for a polysubstance overdose. ALLERGIES: ASPIRIN, CODEINE, NONSTEROIDAL ANTIINFLAMMATORY DRUGS (NSAID). SOCIAL HISTORY: She is . She smokes one pack of cigarettes per day. She has a history of polysubstance abuse. She has an open CPS case. She has a daughter at home. FAMILY HISTORY: Noncontributory. PAST MEDICAL HISTORY: 1. Hypertension 2. Seizure disorder. 3. Post traumatic brain injury (TBI) 2011. 4. Hypothyroidism secondary to thyroidectomy secondary to Grave disease. 5. Anxiety. PAST SURGICAL HISTORY: Thyroidectomy 2015. LABORATORY STUDIES: Her thyroid simulating hormone (TSH) was 32.20, but she states she has not been taking her levothyroxine and that has been restarted at her dose of [address] she had prior to being transferred from the intensive care unit (ICU) of the head showed a small frontal scalp hematoma. HOME MEDICATIONS: - fluoxetine 10 mg by mouth daily - Depakote 500 mg by mouth twice a day - fluoxetine 20 mg by mouth daily - Fioricet one cap by mouth every 4 hours as needed for migraines. - clonazepam 1 mg by mouth three times a day as needed for anxiety - Lomotil one tab four times a day as needed for diarrhea, which she has no complaint of. REVIEW OF SYSTEMS: No complaint of headache, just soreness at her front forehead where she has a hematoma. No blurring of her vision. No fever or chills. No tinnitus, no hoarseness. No difficulty swallowing. No lightheadedness or vertigo. BREASTS: No masses. CARDIOVASCULAR: She has no complaints of chest pain, shortness of breath, palpitations or edema. RESPIRATORY: No chronic cough or sputum production. No hemoptysis, no orthopnea, no wheeze. GASTROINTESTINAL (GI): No nausea, vomiting, diarrhea. No hematochezia, no melena. No complaints of abdominal pain . GENITOURINARY (): No hematuria, dysuria or frequency. MUSCULOSKELETAL: No joint, redness or swelling. ENDOCRINE: History of hypothyroidism. HEMATOLOGICAL: No history of anemia. NEUROLOGICAL: She has a history of seizures, is on Depakote. PSYCHOLOGICAL: Has a history of anxiety, depression, post traumatic brain injury (TBI). PHYSICAL EXAMINATION: 36-year-old cooperative female in no acute distress. Height 36 inches. Weight 89.6 kg. Body mass index (BMI) 35. Blood pressure 140/80, pulse 88, respirations 18, temperature 98.4. The patient is alert and oriented times three. Pupils equal and reactive to light. Sclerae clear. Conjunctivae normal. No facial asymmetry. She has ecchymosis around both orbits. She has ecchymosis and there is palpable hematoma on her left anterior forehead. No facial asymmetry. Tympanic membranes pearly bilaterally. Pharynx: Tongue and gums pink and moist. Tongue is midline. Neck is supple, without lymphadenopathy, no thyromegaly, no goiter. Carotids 2+ without bruit. Chest clear to auscultation without wheeze or retraction. Heart is regular. Abdomen benign. Bowel sounds positive. Genitourinary () exam not done. Extremities show good strength, full range of motion. No clubbing, cyanosis or edema. Peripheral pulses equal and palpable bilaterally. Skin is warm and dry. IMPRESSION/PLAN: Psychiatric plan per psychiatry. Small frontal scalp hematoma, healing. Elevated thyroid simulating hormone (TSH), has been noncompliant with medication, restarted levothyroxine at her dose of 150 mcg. History of hypertension. Continue lisinopril. History of seizures. Continue Depakote. Polysubstance abuse. Continue outpatient counseling.
[2016-12-14] MEDS: LEVOTHYROXINE 150MCG TABLET (0.15MG) PO SCH (06:09)
[2016-12-14 06:54] VITALS: BP 147/91
[2016-12-14] MEDS: DIVALPROEX 500MG *ER* TAB PO SCH ×4 (09:34→21:48)
[2016-12-14] MEDS: NICOTINE 21MG/24HR 1 EA TRANSDERMAL TD SCH (09:34)
[2016-12-14] MEDS: LISINOPRIL 10 MG TAB PO SCH (09:35)
[2016-12-14] MEDS: LORazepam 1 MG TAB PO PRN (09:36)
[2016-12-14] MEDS: FIORICET TAB PO PRN (09:37)
[2016-12-14] MEDS: FLUoxetine 20 MG CAP PO SCH (11:51)
[2016-12-14] MEDS: LORazepam 0.5 MG TAB PO PRN ×2 (16:37→21:49)
[2016-12-14] MEDS: ACETAMINOPHEN 500 MG TAB PO PRN (17:44)
[2016-12-14 18:00] VITALS: BP 148/98
[2016-12-14] MEDS: diphenhydrAMINE 50 MG CAP PO PRN (21:48)
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
[2016-12-14] MEDS: NEOSPORIN TOP OINT 15GM TOP SCH (22:04)
[2016-12-15] MEDS: LEVOTHYROXINE 150MCG TABLET (0.15MG) PO SCH (05:38)
[2016-12-15 06:00] VITALS: BP 134/87
[2016-12-15] MEDS: DIVALPROEX 500MG *ER* TAB PO SCH ×3 (09:25→21:57)
[2016-12-15] MEDS: LISINOPRIL 10 MG TAB PO SCH (09:25)
[2016-12-15] MEDS: FLUoxetine 20 MG CAP PO SCH (09:25)
[2016-12-15] MEDS: ACETAMINOPHEN 500 MG TAB PO PRN ×2 (09:25→17:49)
[2016-12-15] MEDS: NICOTINE 21MG/24HR 1 EA TRANSDERMAL TD SCH (09:26)
[2016-12-15] MEDS: NEOSPORIN TOP OINT 15GM TOP SCH ×3 (09:26→21:58)
[2016-12-15] MEDS: LORazepam 0.5 MG TAB PO PRN ×3 (09:27→21:57)
[2016-12-15 18:00] VITALS: BP 126/77
[2016-12-15] MEDS: diphenhydrAMINE 50 MG CAP PO PRN (21:57)
--- NOTE | 2016-12-15 22:13 | IPN ---
DATE: 12/15/2016 VITAL SIGNS: Temperature 98.1, pulse 73, respirations 18, blood pressure 134/87. CURRENT MEDICATIONS: - Depakote 500 mg four times a day - Ativan 0.5 mg every 4 hours as needed - Prozac 40 mg every morning HISTORY OF PRESENT ILLNESS: Patient states that she was angry and irritable last night. She is upset that her inspectors and regulatory officers wants to keep her in the hospital, otherwise she will be going to skilled nursing. She has been referred to inpatient chemical dependency program. Child protective services (CPS) has been involved as well. She has a court hearing in 2 weeks and may lose custody of her 12 year old daughter because of her recent relapse. She does report sedation from the increased dose of Depakote. She has felt less anxious however since the Depakote dosage has been increased. Her appetite is good. She did not sleep as well last night. She states that it is due to all of the changes and stress in her life. No recent panic attacks. MENTAL STATUS EXAMINATION: Patient remains anxious with some dysphoria. Insight and judgment remain poor. No signs of psychosis. Mood is labile and irritable. She is not actively suicidal but does appear to be impulsive. DIAGNOSIS: Adjustment disorder with mixed emotional features, posttraumatic stress disorder (PTSD), panic anxiety disorder, sedative hypnotic use disorder with abuse of Fioricet, xanax, and Klonopin. PLAN: Obtain Depakote level tomorrow. Reduce Depakote down to 500 mg three times a day. Wean off Ativan over the next day or two. As she will be going inpatient chemical dependency.
[2016-12-16] MEDS: LEVOTHYROXINE 150MCG TABLET (0.15MG) PO SCH (06:16)
[2016-12-16 07:06] VITALS: BP 145/85
[2016-12-16] MEDS: FLUoxetine 20 MG CAP PO SCH (09:06)
[2016-12-16] MEDS: LORazepam 0.5 MG TAB PO PRN ×3 (09:06→21:25)
[2016-12-16] MEDS: ACETAMINOPHEN 500 MG TAB PO PRN ×2 (09:06→21:26)
[2016-12-16] MEDS: DIVALPROEX 500MG *ER* TAB PO SCH ×3 (09:06→21:25)
[2016-12-16] MEDS: NICOTINE 21MG/24HR 1 EA TRANSDERMAL TD SCH (09:07)
[2016-12-16] MEDS: NEOSPORIN TOP OINT 15GM TOP SCH ×3 (09:07→21:26)
[2016-12-16] MEDS: LISINOPRIL 10 MG TAB PO SCH (09:09)
[2016-12-16] MEDS: PROPRANOLOL 20 MG TAB PO SCH ×3 (11:35→21:26)
[2016-12-16 18:00] VITALS: BP 137/81
[2016-12-16] MEDS: AMITRIPTYLINE 25 MG TAB PO SCH (21:25)
[2016-12-17] MEDS: LEVOTHYROXINE 150MCG TABLET (0.15MG) PO SCH (06:10)
[2016-12-17 06:22] VITALS: BP 144/47
--- NOTE | 2016-12-17 08:18 | MHIPN ---
DATE: 12/16/2016 VITAL SIGNS: Temperature 97.7, pulse 69, respiration 20, blood pressure 145/85. CURRENT MEDICATIONS: - Depakote 500 mg three times a day - Ativan 0.5 mg every 4 hours as needed - Prozac 40 mg every morning HISTORY OF PRESENT ILLNESS: The patient's hazard mitigation officer came in yesterday. He is concerned about her frequent history of overdoses. She is not safe being discharged home in his opinion. Radha Godwin refused to take her as she has an active workman's compensation case pending. Staff will look into other possible CD programs in [facility]. The patient denies feeling depressed. She is quite stressed, however. She is irritable. She is annoyed. She is on edge. She complains of headaches. The patient wants to go back on her Inderal, which she had been on prior to admission. She had also been on amitriptyline as well. This has helped her with sleep and with her headaches. No recent panic attacks. MENTAL STATUS EXAMINATION: The patient remains quite anxious. She has some dysphoria and labile affect. Insight and judgment are still quite poor. She is not psychotic. The patient remains impulsive and a potential danger to herself. DIAGNOSIS: Adjustment disorder with mixed emotional features. Posttraumatic stress disorder. Panic/anxiety disorder. 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 Xanax and Klonopin. PLAN: Await results of Depakote level. Start Inderal 40 mg three times a day to help with migraines and with anxiety. The patient also given amitriptyline 25 mg nightly to help with pain and sleep issues. Staff to work on referral to chemical dependency program. 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
[2016-12-17] MEDS: DIVALPROEX 500MG *ER* TAB PO SCH ×3 (09:00→21:31)
[2016-12-17] MEDS: NEOSPORIN TOP OINT 15GM TOP SCH ×3 (09:21→21:00)
[2016-12-17] MEDS: FLUoxetine 20 MG CAP PO SCH (09:22)
[2016-12-17] MEDS: LISINOPRIL 10 MG TAB PO SCH (09:23)
[2016-12-17] MEDS: NICOTINE 21MG/24HR 1 EA TRANSDERMAL TD SCH (09:24)
[2016-12-17] MEDS: ACETAMINOPHEN 500 MG TAB PO PRN ×2 (09:24→21:33)
[2016-12-17] MEDS: PROPRANOLOL 20 MG TAB PO SCH ×3 (09:24→21:33)
[2016-12-17] MEDS: LORazepam 0.5 MG TAB PO PRN ×3 (09:24→21:35)
[2016-12-17] MEDS: diphenhydrAMINE 50 MG CAP PO PRN ×2 (09:25→21:31)
[2016-12-17 18:00] VITALS: BP 150/91
[2016-12-17] MEDS: AMITRIPTYLINE 25 MG TAB PO SCH (21:33)
[2016-12-18] MEDS: LEVOTHYROXINE 150MCG TABLET (0.15MG) PO SCH (05:54)
[2016-12-18 06:33] VITALS: BP 147/88
--- NOTE | 2016-12-18 08:12 | MHIPN ---
DATE: 12/17/2016 VITAL SIGNS: Temperature 96.9, pulse 63, respirations 18, blood pressure 144/47. CURRENT MEDICATIONS: - amitriptyline 25 mg at bedtime - propranolol 40 mg three times a day - Depakote 500 mg three times a day - Prozac 40 mg every morning HISTORY OF PRESENT ILLNESS: Recent complaints that her body hurts all over. She blames this on the fact that she is no longer taking the Fioricet and that she is on the minimal dose of Ativan. She is agreeable to inpatient chemical dependency recommended by her state highway police officer. She slept better last night with the amitriptyline. She did still toss and turn, however, but this is a major improvement. She had no nightmares. The patient claims that she is attending the group therapy program. According to staff notes, sometimes she attends, sometimes she isolates. The patient states that she likes meditation as she is a [employer]. She prefers to do hands-on activities like arts and crafts, but not the talking therapy. No recent panic attacks. She claims she is tolerating her medication well. MENTAL STATUS EXAMINATION: The patient is anxious with dysphoria, labile affect. Insight and judgment remain poor. No signs of psychosis. The patient remains impulsive. DIAGNOSES: 1. Change to major depression. 2, posttraumatic stress disorder (PTSD). 3. Panic anxiety disorder. 4. Sedative hypnotic use disorder. PLAN: Maintain current psychotropics. The patient still has not gotten her Depakote level. Refer patient to chemical dependency program is in the works.
[2016-12-18] MEDS: LORazepam 0.5 MG TAB PO PRN ×2 (08:56→13:29)
[2016-12-18] MEDS: LISINOPRIL 10 MG TAB PO SCH (08:56)
[2016-12-18] MEDS: FLUoxetine 20 MG CAP PO SCH (08:56)
[2016-12-18] MEDS: NICOTINE 21MG/24HR 1 EA TRANSDERMAL TD SCH (08:56)
[2016-12-18] MEDS: ACETAMINOPHEN 500 MG TAB PO PRN ×2 (08:57→20:47)
[2016-12-18] MEDS: diphenhydrAMINE 50 MG CAP PO PRN ×2 (08:57→20:47)
[2016-12-18] MEDS: PROPRANOLOL 20 MG TAB PO SCH ×3 (08:57→20:49)
[2016-12-18] MEDS: NEOSPORIN TOP OINT 15GM TOP SCH ×3 (08:58→20:46)
[2016-12-18] MEDS: DIVALPROEX 500MG *ER* TAB PO SCH ×3 (08:58→20:46)
[2016-12-18 18:00] VITALS: BP 122/76
[2016-12-18] MEDS: AMITRIPTYLINE 50 MG TAB PO SCH (20:47)
[2016-12-19] MEDS: LEVOTHYROXINE 150MCG TABLET (0.15MG) PO SCH (06:00)
[2016-12-19 06:43] VITALS: BP 119/61
[2016-12-19] MEDS: FLUoxetine 20 MG CAP PO SCH (09:04)
[2016-12-19] MEDS: NICOTINE 21MG/24HR 1 EA TRANSDERMAL TD SCH (09:04)
[2016-12-19] MEDS: NEOSPORIN TOP OINT 15GM TOP SCH ×2 (09:05→15:48)
[2016-12-19] MEDS: DIVALPROEX 500MG *ER* TAB PO SCH ×2 (09:05→15:45)
[2016-12-19] MEDS: ACETAMINOPHEN 500 MG TAB PO PRN (09:05)
[2016-12-19] MEDS: diphenhydrAMINE 50 MG CAP PO PRN (09:05)
[2016-12-19] MEDS: LISINOPRIL 10 MG TAB PO SCH (09:06)
[2016-12-19] MEDS: PROPRANOLOL 20 MG TAB PO SCH ×2 (09:06→15:48)
--- NOTE | 2016-12-19 10:48 | MHIPN ---
DATE: 12/18/2016 VITAL SIGNS: Temperature 98.5, pulse 68, respirations 16, blood pressure 147/88. CURRENT MEDICATION: - amitriptyline 25 mg at bedtime - Inderal 40 mg three times a day - Depakote 500 mg three times a day - Prozac 40 mg every morning HISTORY OF PRESENT ILLNESS: The patient still complains of her body aching all over, she claims withdrawal from the Fioricet and the benzodiazepines. She had a sleep latency of 90 minutes last night. She then tossed and turned most of the night. She does find the amitriptyline helpful, however, she was just started on the amitriptyline for nightmares. She admits to still feeling irritable at times where she can get "mean and nasty ". The patient's Depakote level was therapeutic at 74.3. The patient is being assessed for [facility] drug rehabilitation program; hopefully, with an opening for next week. No recent panic attacks. MENTAL STATUS EXAMINATION: The patient remains quite anxious with dysphoric mood. She is labile. Insight and judgment appear fair today. She is not psychotic. Depression is mild. The patient is not voicing suicidal ideation. DIAGNOSES: Major depression, mild severity. Post traumatic stress disorder. Panic and anxiety disorder. Sedative hypnotic use disorder. PLAN: Increase amitriptyline to 50 mg at bedtime. No change in other psychotropics.
[2016-12-19 18:00] VITALS: BP 128/72
[2016-12-20] MEDS: AMITRIPTYLINE 50 MG TAB PO SCH ×2 (00:04→21:21)
[2016-12-20] MEDS: diphenhydrAMINE 50 MG CAP PO PRN ×2 (00:05→21:21)
[2016-12-20] MEDS: DIVALPROEX 500MG *ER* TAB PO SCH ×4 (00:05→21:21)
[2016-12-20] MEDS: PROPRANOLOL 20 MG TAB PO SCH ×4 (00:05→21:22)
[2016-12-20] MEDS: ACETAMINOPHEN 500 MG TAB PO PRN ×3 (00:06→21:21)
[2016-12-20] MEDS: NEOSPORIN TOP OINT 15GM TOP SCH ×4 (00:07→21:21)
[2016-12-20] MEDS: LEVOTHYROXINE 150MCG TABLET (0.15MG) PO SCH (06:02)
[2016-12-20 06:50] VITALS: BP 136/88
[2016-12-20] MEDS: NICOTINE 21MG/24HR 1 EA TRANSDERMAL TD SCH (09:29)
[2016-12-20] MEDS: FLUoxetine 20 MG CAP PO SCH (09:30)
[2016-12-20] MEDS: LISINOPRIL 10 MG TAB PO SCH (09:30)
[2016-12-20 18:00] VITALS: BP 154/90
[2016-12-21] MEDS: LEVOTHYROXINE 150MCG TABLET (0.15MG) PO SCH (06:03)
[2016-12-21 07:10] VITALS: BP 120/68
[2016-12-21] MEDS: diphenhydrAMINE 50 MG CAP PO PRN (08:09)
[2016-12-21] MEDS: FLUoxetine 20 MG CAP PO SCH (08:09)
[2016-12-21] MEDS: DIVALPROEX 500MG *ER* TAB PO SCH (08:10)
[2016-12-21] MEDS: ACETAMINOPHEN 500 MG TAB PO PRN (08:11)
[2016-12-21] MEDS: LISINOPRIL 10 MG TAB PO SCH (08:11)
[2016-12-21 08:12] VITALS: BP 155/98
[2016-12-21] MEDS: PROPRANOLOL 20 MG TAB PO SCH (08:12)
[2016-12-21] MEDS: NICOTINE 21MG/24HR 1 EA TRANSDERMAL TD SCH (08:13)
[2016-12-21] MEDS: NEOSPORIN TOP OINT 15GM TOP SCH (08:31)
--- NOTE | 2016-12-22 07:15 | MHDS ---
DATE OF ADMISSION: 12/12/2016 DATE OF DISCHARGE: 12/21/2016 VITAL SIGNS: Temperature 97.6, pulse 65, respirations 17, blood pressure 120/68. DISCHARGE MEDICATIONS: - amitriptyline 50 mg at bedtime (hs) - propranolol 40 mg three times a day - Depakote ER 500 mg three times a day - Prozac 40 mg every morning LABORATORY: Valproic acid level therapeutic at 74.3. Complete blood count (CBC) and differential normal except for red blood cell low at 3.83. MCV high at 96.4. Serum chemistry revealed a potassium low at 3.4, chloride elevated at 109, creatine high at 1.03. Calcium low at 7.2. Urine toxicology screen is positive for barbiturates and tricyclic antidepressants. DISCHARGE DIAGNOSIS: 1. Major depression, mild severity. 2. Posttraumatic stress disorder (PTSD). 3. Panic anxiety disorder. 4. Sedative hypnotic use disorder CHIEF COMPLAINT: The patient collapsed in their bathroom after taking an overdose of Fioricet. HISTORY OF PRESENT ILLNESS: This is a 36-year-old white female living with her 19-year-old son, a 12-year-old daughter was visiting and found her lying on the floor in a pool of blood. The patient had apparently overdosed on Fioricet, fallen and got two black eyes. The patient admits that she abuses the Fioricet. The patient has a history of posttraumatic stress disorder (PTSD) and panic disorder. She is probation. She has a court hearing coming up soon, where she may lose custody of her 12-year-old daughter. PROGRESS ON THE UNIT: The patient was initially irritable upon arriving to the unit denying that she needed to be here. Her mood did improve gradually. She had trouble withdrawing from not only the Fioricet that she was using and abusing, but also Klonopin and Xanax that she had been receiving from other providers. Her staff command and control officer was involved and recommended having her go back to an inpatient chemical dependency program. The patient agreed, as she did not want to return to intermediate. The patient's mood stabilized recently well on her psychotropics. MENTAL STATUS EXAMINATION: At the time of discharge, mood and affect appeared recently good. The patient's affect appeared calm. She reported some dysphoria about going out of town for a long 28 day program. She was not suicidal however. She was not homicidal. Insight and judgment are fair. No signs of psychosis. Not hearing voices. No paranoia or thought disorder. Grooming and hygiene appear good. The patient is recovering from her two black eyes. No signs of cognitive deficit. ASSESSMENT: The patient should not be prescribed control substances in my opinion. Her staff command and control officer agrees with this. The patient admits that she abuses them and has no control over these controlled substances. PLAN: Discharge to the care of her staff command and control officer, who will be transporting her [facility].
== END 2016-12-21 08:20 | DRG 751 ==
LOC: M PSY 13:20
PROVIDERS: ADMIT Psychiatry & Neurology Psychiatry; ATTEND Psychiatry & Neurology Psychiatry
DX: F32.0 Major depressive disorder, single episode, mild (principal); F11.20 Opioid dependence, uncomplicated; F13.20 Sedative, hypnotic or anxiolytic dependence, uncomplicated; E89.0 Postprocedural hypothyroidism; I10 Essential (primary) hypertension; M54.2 Cervicalgia; G40.909 Epilepsy, unspecified, not intractable, without status epilepticus; F43.10 Post-traumatic stress disorder, unspecified; F17.210 Nicotine dependence, cigarettes, uncomplicated; F41.0 Panic disorder [episodic paroxysmal anxiety]; K08.419 Partial loss of teeth due to trauma, unspecified class; T42.3X1A Poisoning by barbiturates, accidental (unintentional), initial encounter; Z81.8 Family history of other mental and behavioral disorders; S00.83XA Contusion of other part of head, initial encounter; W18.09XA Striking against other object with subsequent fall, initial encounter; Y92.002 Bathroom of unspecified non-institutional (private) residence as the place of occurrence of the external cause; Z87.820 Personal history of traumatic brain injury; Y99.8 Other external cause status; Z91.410 Personal history of adult physical and sexual abuse; Z88.6 Allergy status to analgesic agent; Z88.5 Allergy status to narcotic agent; Z91.14 Patient's other noncompliance with medication regimen; Z79.899 Other long term (current) drug therapy

== ENCOUNTER → 2017-02-09 | Outpatient (CLI) | payer MEDICAID | LOC: M OUTALCOH 07:45 | PROVIDERS: ATTEND Psychiatry & Neurology Psychiatry | DX: F13.20 Sedative, hypnotic or anxiolytic dependence, uncomplicated (principal) ==

== ENCOUNTER → 2017-06-03 | Outpatient (CLI) | payer MEDICAID | LOC: M OUTALCOH 10:08 | DX: F13.20 Sedative, hypnotic or anxiolytic dependence, uncomplicated (principal); F11.20 Opioid dependence, uncomplicated ==

== ENCOUNTER 2017-06-25 14:49 | Outpatient (RCR) | payer MEDICAID | END 2017-07-14 | LOC: M OUTALCOH 14:49 | DX: F13.20 Sedative, hypnotic or anxiolytic dependence, uncomplicated (principal); F11.20 Opioid dependence, uncomplicated; F19.20 Other psychoactive substance dependence, uncomplicated; F17.200 Nicotine dependence, unspecified, uncomplicated ==

== ENCOUNTER 2018-12-15 22:57 | Emergency (ER) | payer MEDICAID, SELFPAY ==
[~2018-12-15] VITALS: Ht 160 cm; Wt 87.7 kg
[~2018-12-15 22:57] MED LIST changes: -/TIZA4TA PO; -CLON1TAB; -CLON1TAB PO; +CLON1TAB8; +CLON1TAB8 PO; -DIVA500T3 PO; +DIVA500T94 PO; -DOXY-278 PO; +DOXY-350 PO; -LORA10TA2 PO; +LORA10TA3 PO; +MIRE1IUD IU; -MIREIUD IU; -NICO21DI5 TD; +NICO21DI6 TD; -NORC1TAB4 PO; +NORC1TAB7 PO; +TIZA1TAB19 PO
[2018-12-15] MEDS ORDERED: PROP80TA PO (23:07)
[2018-12-15] MEDS ORDERED: PRAM1TAB75 PO (23:07)
[2018-12-15] MEDS ORDERED: LISI10TA4 PO (23:07)
[2018-12-15] MEDS ORDERED: PHEN30CA PO (23:07)
[2018-12-15] MEDS ORDERED: DEPA250T2 PO (23:07)
[2018-12-16] MEDS ORDERED: PROPRANOLOL 20 MG TAB PO ONE (01:00)
[2018-12-16] MEDS ORDERED: DIVALPROEX 250MG *ER* TAB PO ONE (01:00)
[2018-12-16] MEDS ORDERED: PRAM1TAB75 PO (01:09)
[2018-12-16] MEDS ORDERED: PROP80CA PO (01:09)
[2018-12-16] MEDS ORDERED: PHEN30CA PO (01:09)
[2018-12-16] MEDS ORDERED: SUMA50TA2 PO (01:09)
[2018-12-16] MEDS ORDERED: LEVO-95 PO (01:09)
[2018-12-16] MEDS ORDERED: DEPA250T2 PO (01:09)
[2018-12-16] MEDS ORDERED: LISI10TA4 PO (01:09)
[2018-12-16 01:13] VITALS: BP 139/73
[2018-12-16 01:26] VITALS: BP 139/63
--- NOTE | 2018-12-16 07:53 | REP ---
Clinical: Trauma. Technique: AP, lateral, bilateral oblique views right digits . Findings: The osseous structures and joint spaces are intact and normal. There is no evidence for acute fracture or dislocation. Surrounding soft tissues are unremarkable. No subcutaneous emphysema or radiodense foreign body. Impression: No acute fracture or dislocation. Electronically Signed by Albert Monique MD 12/16/2018 07:45 A
[2018-12-16] MEDS ORDERED: PROPRANOLOL 80 MG LA CAP PO SCH (09:00)
== END 2018-12-16 01:30 | disposition home or self-care (01) ==
LOC: M ED 22:57
DX: Z76.0 Encounter for issue of repeat prescription (principal); M65.4 Radial styloid tenosynovitis [de Quervain]; G40.909 Epilepsy, unspecified, not intractable, without status epilepticus; E03.9 Hypothyroidism, unspecified; Z79.899 Other long term (current) drug therapy; Z79.890 Hormone replacement therapy; Z88.5 Allergy status to narcotic agent; Z88.8 Allergy status to other drugs, medicaments and biological substances; F17.210 Nicotine dependence, cigarettes, uncomplicated